=== PATIENT | female | born 1975 | race Caucasian/White ===

== ENCOUNTER 2017-05-18 21:21 | Emergency (ER) | payer OTHER ==
[2017-05-18 23:06] LABS: ADD MAN DIFF? NO
[2017-05-18] MEDS: PANTOPRAZOLE 40 MG INJ IV (23:07)
[2017-05-18] MEDS: ONDANSETRON 4 MG INJ IV (23:07)
[2017-05-18] MEDS: KETOROLAC 15 MG INJ IV (23:07)
[2017-05-18 23:08] LABS: BASOPHILS % 0.4 % (0.0-2.0); EOSINOPHILS # 0.1 10^3/ul (0.0-0.5); EOSINOPHILS % 0.7 % (0.0-7.0); HEMATOCRIT 37.7 % (37.0-47.0); HEMOGLOBIN 12.7 g/dl (12.0-16.0); LYMPHOCYTES # 1.2 10^3/ul (0.8-2.9); LYMPHOCYTES % 17.9 % (15.0-51.0); MEAN CORPUSCULAR HEMOGLOBIN 28.6 pg (29.0-33.0); MEAN CORPUSCULAR HGB CONC 33.7 g/dl (32.0-37.0); MEAN CORPUSCULAR VOLUME 84.9 fl (82.0-101.0); MEAN PLATELET VOLUME 10.2 fl (7.4-10.4); MONOCYTE # 0.4 10^3/ul (0.3-0.9); MONOCYTES % 5.5 % (0.0-11.0); NEUTROPHIL # 5.1 10^3/ul (1.6-7.5); NEUTROPHILS % 75.1 % (39.0-77.0); PLATELET COUNT 344 10^3/UL (140-415); RED BLOOD COUNT 4.44 10^6/ul (4.20-5.40); RED CELL DISTRIBUTION WIDTH 12.5 % (11.5-14.5)
[2017-05-18 23:08] LABS: WHITE BLOOD COUNT 6.8 10^3/ul (4.8-10.8)
[2017-05-18] MEDS: SOD CHLORIDE 0.9% 1,000 ML IV (23:08)
[2017-05-19 00:03] LABS: ADD UMIC YES; UR ASCORBIC ACID NEGATIVE (NEGATIVE); UR BILIRUBIN (Dip) NEGATIVE (NEGATIVE); UR BLOOD (Dip) 3+ mg/dL (NEGATIVE); UR CLARITY SLIGHTLY CLOUDY (CLEAR); UR COLOR YELLOW (YELLOW); UR GLUCOSE (Dip) NEGATIVE (NEGATIVE); UR KETONES (Dip) 1+ mg/dL (NEGATIVE); UR LEUKOCYTE ESTERASE (Dip) NEGATIVE Leu/ul (NEGATIVE); UR NITRITE (Dip) NEGATIVE (NEGATIVE); UR RBC 49 /HPF (0-5); UR SPECIFIC GRAVITY (Dip) 1.017 (1.003-1.030); UR SQUAMOUS EPITHELIAL CELL FEW /HPF (FEW); UR TOTAL PROTEIN (Dip) 2+ mg/dl (NEGATIVE); UR UROBILINOGEN (Dip) NEGATIVE (NEGATIVE); UR WBC 6 /HPF (0-5)
[2017-05-19 00:40] LABS: ALANINE AMINOTRANSFERASE 28 IU/L (13-69); ALBUMIN 4.1 g/dl (3.3-4.9); ALKALINE PHOSPHATASE 86 IU/L (42-121); ANION GAP 20 (8-16); ASPARTATE AMINO TRANSFERASE 25 IU/L (15-46); BILIRUBIN,INDIRECT 0.4 mg/dl (0-1.1); BILIRUBIN,TOTAL 0.4 mg/dl (0.2-1.3); BLOOD UREA NITROGEN 11 mg/dl (7-20); CALCIUM 9.5 mg/dl (8.4-10.2); CARBON DIOXIDE 22 mmol/L (21-31); CHLORIDE 103 mmol/L (97-110); CREATININE 0.74 mg/dl (0.44-1.00); GLUCOSE 143 mg/dl (70-220); LIPASE 38 U/L (23-300); SODIUM 142 mmol/L (135-144); TOTAL PROTEIN 7.8 g/dl (6.1-8.1)
[2017-05-19 00:50] LABS: POTASSIUM 2.6 mmol/L (3.5-5.1)
[2017-05-19 01:36] LABS: POTASSIUM 3.4 mmol/L (3.5-5.1)
== END 2017-05-19 02:45 | disposition home or self-care (01) ==
LOC: FTE 05-19 02:45
DX: R10.31 Right lower quadrant pain (principal); I10 Essential (primary) hypertension; R11.10 Vomiting, unspecified; F41.0 Panic disorder [episodic paroxysmal anxiety]
CPT/HCPCS: 36415; 76705; 80053; 81001; 83690; 84132; 85025; 96374; 96375; 99285-25